=== PATIENT | male | born 1945 | race Caucasian/White ===

== ENCOUNTER → 2018-06-02 09:34 | Outpatient (CLI) | payer OTHER, SELFPAY ==
[2018-06-02 10:28] LABS: Alanine Aminotransferase 30 IU/L (21-72); Aspartate Aminotransferase 24 IU/L (17-59); Blood Urea Nitrogen 21 mg/dL (9-20); Calcium 9.5 mg/dL (8.4-10.2); Carbon Dioxide 28 mmol/L (22-32); Chloride 104 mmol/L (98-107); Cholesterol 145 mg/dL (140-199); Estimated Glomerular Filt Rate > 60.0 mL/min (>60); Glucose 92 mg/dL (80-110); HDL Cholesterol 45 mg/dL (40-60); HEMOLYSIS < 15 (0-50); LDL Cholesterol Calculated 82 mg/dL (<100); Potassium 3.8 mmol/L (3.4-5.1); Sodium 142 mmol/L (137-145); Triglycerides 91 mg/dL (35-150)
== END ==
PROVIDERS: Family Provider Internal Medicine; PCP Internal Medicine; Visit Provider Internal Medicine
DX: E78.5 Hyperlipidemia, unspecified (principal)
CPT/HCPCS: 36415; 80048; 80061; 84450; 84460

== ENCOUNTER 2018-12-08 06:52 | Day surgery (SDC) | payer OTHER, SELFPAY ==
[2018-12-08] VITALS (9 sets, daily range): BP systolic 88–119; BP diastolic 59–70; PULSE 48–74; RESP 10–15; TEMP 36.1–36.7; O2SAT 95–98; BMI 24.4
[2018-12-08] MEDS: SODIUM CHLORIDE 0.9% 1,000 ML 200 ML IV (07:20)
--- NOTE | 2018-12-08 07:53 | PM.HP.1 ---
History of Present Illness Date Patient Seen: 12/08/18 Time Patient Seen: 07:53 Chief complaint: [id number] Colonoscopy Narrative: 72-year-old male who presents for colorectal screening. His last colonoscopy was 12 years ago. He reports that it was normal at that time. On further history today he denies any gastrointestinal symptoms. No nausea, vomiting, abdominal pain, loss of appetite, unexplained weight loss, change in bowel habits, diarrhea, constipation, melena, hematochezia, or bright red blood per rectum. Patient History Medical History Benign prostatic hyperplasia (Acute) Depression (Acute) Hyperlipidemia (Acute) Hypertension (Acute) Melanoma (Acute) Osteoarthritis (Acute) Surgical History History of colonoscopy (Acute) Social History household members: spouse Family & Social History Social History: household members spouse Meds Home Medications Medication Instructions Recorded Confirmed Type amlodipine 10 mg PO DAILY 12/08/18 12/08/18 History aspirin 12/08/18 History atorvastatin 20 mg PO DAILY 12/08/18 12/08/18 History hydrochlorothiazide 25 mg PO DAILY 12/08/18 12/08/18 History losartan 50 mg PO DAILY 12/08/18 12/08/18 History methylphenidate HCl 5 mg PO BID 12/08/18 12/08/18 History tamsulosin 0.4 mg PO DAILY 12/08/18 12/08/18 History Allergies Allergy/AdvReac Type Severity Reaction Status Date / Time No Known Drug Allergies Allergy Verified 12/08/18 07:06 Review of Systems Review of Systems All systems reviewed & are unremarkable except as noted in HPI and below Exam Vital Signs (past 8 hours): - 12/08/18 07:11 Temperature 97.6 F Pulse Rate 53 L Respiratory Rate 15 Blood Pressure 112/66 Pulse Oximetry 97 Oxygen Delivery Method Room Air Narrative Exam Narrative: Well-nourished well-developed male in no acute distress. Alert oriented x3 Sclera nonicteric Regular rate rhythm No wheezes Abdomen soft, nondistended, nontender Extremities show no clubbing or cyanosis Objective Labs Labs: No recent laboratory or radiographic studies for review Assessment & Plan Assessment & Plan narrative: 72-year-old male who requires colorectal screening by age criteria. His last examination was 12 years ago as well. Colonoscopy is currently recommended. Risks, benefits, alternatives in addition to the technical details of colonoscopy were explained. Risks including but not limited to sedation, aspiration, bleeding, pain, missed lesion, incomplete examination, need for further radiographic studies, colonic perforation, need for major abdominal surgery, and all attendant risks of major surgery were explained in detail. All questions were answered to his satisfaction, and he voiced understanding. Consent was placed on the chart. We will proceed as above.
--- NOTE | 2018-12-08 07:56 | PM.PREOP ---
Pre-operative Note Interval Note History & Physical reviewed/Exam performed by Physician: Yes Changes to H&P: No H&P completed within 30 days and has changed as indicated here:: Patient seen and examined. History physical examination placed on the chart today. Obviously, there have been no changes in the last 15 min. Proceed with colonoscopy today as planned. ASA Class (for procedural sedation): II
[2018-12-08] MEDS: MIDAZOLAM 5 MG/5 ML VIAL IV (08:07)
[2018-12-08] MEDS: fentaNYL 250 MCG/5 ML INJ IV (08:08)
--- NOTE | 2018-12-08 08:17 | PM.OP.ENDO ---
Operative Date/Time/Diagnoses Date of procedure: 12/08/18 Time of procedure: 08:18 Pre-op diagnosis: Colorectal screening Post-op diagnosis: other (Poor suboptimal bowel preparation necessitating aborted colonoscopy) Procedure & Clinicians Study performed: 1. Sedation per surgeon 2. Aborted incomplete colonoscopy due to suboptimal poor bowel preparation Same procedure as scheduled: No Indications: 72-year-old male whose last colonoscopy was 12 years ago. He presents now for colorectal screening. Colonoscopy is once again recommended. Surgeon: Santana Brandon Procedure Notes SCOAP/Timeout: Yes Procedure in detail: After obtaining informed consent the patient was brought the endoscopy suite and attached all appropriate cardiopulmonary monitors. Nasal cannula oxygen was applied. He was placed in left lateral decubitus position. SCOAP time out was performed per standard protocol. Intravenous sedation was achieved per the surgeon using fentanyl and Versed in incremental doses. However, the patient was somewhat difficult to sedate and would awake suddenly throughout the procedure attempting to move. Digital rectal examination revealed no masses or other abnormalities. Prostate was without nodules. Colonoscope was inserted into the rectum and the bowel was insufflated with carbon dioxide. The bowel preparation was quite poor in suboptimal with retained fibrous food material, solid stool, and very thick opaque liquid stool. Despite copious irrigation we could not clear the rectum or the colon for adequate visualization at any portion. I could visualize the colonic lumen, however, partially to the level of the hepatic flexure and navigated to that level. Further attempts at navigating the hepatic flexure to the right colon and cecum were nonetheless difficult because of inadequate visualization due to poor preparation complicated by some redundancy of his colon as well as his difficulty for adequate sedation. In the context of the extremely poor preparation I felt that it was not beneficial or productive to continue. Therefore the procedure was abandoned at this point. Scope was withdrawn and the patient taken recovery in stable condition. He will require rescheduled procedure with a 2 day more adequate bowel preparation and general anesthesia for adequate sedation. Scope withdrawal time: Not applicable Sedation minutes: 17 Findings: other findings (Mildly tortuous redundant colon in the setting of a suboptimal poor bowel preparation) Specimen(s): none sent Complications: none Impression: Incomplete examination today necessitating rescheduled procedure with 2 day bowel preparation Recommendations: Other recommendation (Reschedule colonoscopy with better preparation as above and general anesthesia) Plan for aftercare: 1. Discharge home Follow up: as needed (Will reschedule procedure as above) Disposition: PACU
== END 2018-12-08 09:34 | disposition home or self-care (01) ==
LOC: ENDO 06:52
PROVIDERS: Family Provider Internal Medicine; PCP Internal Medicine; Visit Provider Surgery
PROC: 0DJD8ZZ Inspection of Lower Intestinal Tract, Via Natural or Artificial Opening Endoscopic (ICD-10-PCS; CPT 45378; principal; 2018-12-08 07:45)
DX: Z12.11 Encounter for screening for malignant neoplasm of colon (principal); N40.0 Benign prostatic hyperplasia without lower urinary tract symptoms; F32.9 Major depressive disorder, single episode, unspecified; E78.00 Pure hypercholesterolemia, unspecified; I10 Essential (primary) hypertension
CPT/HCPCS: G0104; 99152; J2250; J3010

== ENCOUNTER → 2019-05-15 07:15 | Outpatient (CLI) | payer OTHER, SELFPAY ==
[2019-05-15 08:55] LABS: Alanine Aminotransferase 21 IU/L (21-72); Aspartate Aminotransferase 24 IU/L (17-59); BUN Creatinine Ratio 22.2 (6-22); Blood Urea Nitrogen 20 mg/dL (9-20); Carbon Dioxide 28 mmol/L (22-32); Chloride 104 mmol/L (98-107); Cholesterol 159 mg/dL (140-199); Estimated Glomerular Filt Rate > 60.0 mL/min (>60); Glucose 85 mg/dL (80-110); HDL Cholesterol 43 mg/dL (40-60); HEMOLYSIS < 15 (0-50); LDL Cholesterol Calculated 93 mg/dL (<100); Potassium 4.1 mmol/L (3.4-5.1); Sodium 142 mmol/L (137-145); Triglycerides 113 mg/dL (35-150)
== END ==
PROVIDERS: PCP Internal Medicine; Visit Provider Internal Medicine
DX: I10 Essential (primary) hypertension (principal); E78.5 Hyperlipidemia, unspecified; Z12.5 Encounter for screening for malignant neoplasm of prostate
CPT/HCPCS: 36415; 80048; 80061; 84450; 84460; G0103

== ENCOUNTER → 2020-04-20 08:52 | Outpatient (CLI) | payer MEDICARE, SELFPAY ==
[2020-04-20 10:13] LABS: Alanine Aminotransferase 17 IU/L (<50); Albumin 4.5 g/dL (3.5-5.0); Albumin Globulin Ratio 1.8 (1.0-2.8); Alkaline Phosphatase 78 U/L (38-126); Aspartate Aminotransferase 27 IU/L (17-59); BUN Creatinine Ratio 28.6 (6-22); Bilirubin Total 0.4 mg/dL (0.2-1.3); Blood Urea Nitrogen 22 mg/dL (9-20); Calcium 9.7 mg/dL (8.4-10.2); Carbon Dioxide 26 mmol/L (22-32); Chloride 105 mmol/L (98-107); Cholesterol 133 mg/dL (140-199); Estimated Glomerular Filt Rate > 60.0 mL/min (>60); Globulin 2.5 g/dL (1.7-4.1); Glucose 87 mg/dL (80-110); HDL Cholesterol 39 mg/dL (40-60); HEMOLYSIS < 15 (0-50); LDL Cholesterol Calculated 77 mg/dL (<100); Potassium 4.2 mmol/L (3.4-5.1); Sodium 138 mmol/L (137-145); Triglycerides 87 mg/dL (35-150)
[2020-04-21 08:07] LABS: PSA Free % 25.5 % (.); PSA, Total 1.1 ng/mL (0.0-4.0)
== END ==
PROVIDERS: PCP Internal Medicine; Referring Provider Internal Medicine; Visit Provider Internal Medicine
DX: I10 Essential (primary) hypertension (principal); E78.5 Hyperlipidemia, unspecified; Z12.5 Encounter for screening for malignant neoplasm of prostate
CPT/HCPCS: 36415; 80053; 80061; 84153; 84154

== ENCOUNTER → 2020-07-14 10:14 | Outpatient (CLI) | payer MEDICARE, SELFPAY ==
[2020-07-15 14:00] LABS: COVID19 Sendout Not Detected (Not Detect)
== END ==
PROVIDERS: PCP Internal Medicine; Visit Provider Family Medicine
DX: Z11.59 Encounter for screening for other viral diseases (principal)
CPT/HCPCS: 87635

== ENCOUNTER → 2020-07-17 13:39 | Outpatient (CLI) | payer MEDICARE, SELFPAY ==
--- NOTE | 2020-07-17 | DI.ECHO.S_ITS ---
[facility] +---------+ [facility] +---------+ : : [address] : : : : [id number] : : : : Phone: [phone] Echocardiogram Report + + :Name: KYLE GAONA Study Date: 07/17/2020 Height: 72 in : :[facility] Weight: 182 lb : : Gender: Male BSA: 2.0 m2 : :: 1945 Age: 74 yrs BP: 142/76 mmHg: :Reason For Study: BRADYCARDIA : :Ordering Physician: SYBIL, : :CRISTO Avalos Performed By: Justine Beaulieu : :Referring: CRISTO DEVINE : + + Interpretation Summary The ejection fraction is estimated to be 60-65%. There is trace aortic regurgitation. There is trace tricuspid regurgitation. There is trace mitral regurgitation. Procedure: A two-dimensional transthoracic echocardiogram with color flow and Doppler was performed. The study quality was technically adequate. There is no prior echocardiogram noted for this patient. The heart rate ranged between 50-55 bpm during the study. Left Ventricle: The left ventricle is normal in size and wall thickness. The ejection fraction is estimated to be 60-65%. Left ventricular wall motion is normal. Diastolic parameters suggest probable normal left ventricular diastolic function and normal filling pressures. Right Ventricle: The right ventricle is normal in size and function. Atria: The left atrial size is normal. Right atrial size is normal. There is no Doppler evidence for an interatrial shunt. Mitral Valve: The mitral valve is normal in structure and function. There is trace mitral regurgitation. Aortic Valve: The aortic valve is trileaflet. The aortic valve opens well. There is no aortic valve stenosis. There is trace aortic regurgitation. Tricuspid Valve: The tricuspid valve is normal in structure and function. There is trace tricuspid regurgitation. Pulmonic Valve: The pulmonic valve leaflets are thin and pliable; valve motion is normal. There is trace pulmonic regurgitation. Great Vessels: The aortic root is normal size. The ascending aorta is mildly enlarged. The IVC is of normal diameter and collapses greater than 50% with a sniff. This suggests a low right atrial pressure of 3 mm Hg. Pericardium/ Pleura There is no pericardial effusion. There is no pleural effusion. MMode/2D Measurements & Calculations LVIDd: 4.8 cm LVOT diam: 2.1 cm LVIDs: 3.4 cm Ao root diam: 3.7 cm FS: 30.1 % asc Aorta Diam: 4.1 cm EPSS: 1.4 cm IVSd: 0.83 cm LVPWd: 0.78 cm LV eugene. diameter/BSA (cm/m^2): 2.4 LV sys. diameter/BSA (cm/m^2): 1.6 LA A2 area: 17.3 cm2 RA long axis: 5.6 cm LA A4 area: 17.7 cm2 RA area: 17.8 cm2 LA length (vol): 5.2 cm RA vol: 47.8 ml LA vol: 50.2 ml RA : 23.4 ml/m2 LA vol index: 24.5 ml/m2 IVC diam: 1.6 cm RVD1 (basal): 3.0 cm TAPSE: 2.5 cm Doppler Measurements & Calculations Ao V2 max: 144.3 cm/sec LVOT Max Miguel: 98.5 cm/sec Ao V2 mean: 94.0 cm/sec LV V1 max P.9 mmHg Ao max P.3 mmHg LV V1 VTI: 24.9 cm Ao mean P.2 mmHg JACEY(I,D): 2.4 cm2 Ao V2 VTI: 35.4 cm JACEY(V,D): 2.3 cm2 sev ratio: 0.70 JACEY indexed to BSA (cm^2/m^2): 1.2 MV E max miguel: 67.4 cm/sec TR max miguel: 216.9 cm/sec MV A max miguel: 64.3 cm/sec TR max P.8 mmHg MV E/A: 1.0 PA V2 max: 66.3 cm/sec Med Peak E' Miguel: 6.5 cm/sec PA V2 mean: 42.2 cm/sec E/E' med: 10.4 PA mean P.84 mmHg Lat Peak E' Miguel: 11.6 cm/sec E/E' lat: 5.8 E/e' average: 8.1 MV dec time: 0.25 sec SV(LVOT): 83.7 ml Reading Physician:03:48 PM
--- NOTE | 2020-07-17 18:14 | DI.NM.S_ITS ---
DATE OF SERVICE: 07/17/2020 PROCEDURE: Exercise treadmill stress test without imaging. REFERRING PROVIDER: Dr. Jose Goodwin INDICATIONS: The patient is a 74-year-old male with asymptomatic resting bradycardia. FINDINGS: 1. The patient was able to exercise for 8 minutes 3 seconds on the standard [facility] protocol, suggesting excellent exercise capacity with an KENJI of -29%, achieving 10.1 METS. 2. He had a normal heart rate and blood pressure response to exercise with a resting heart rate of 52 BPM, increasing to a maximum of 130 BPM (90% of his predicted maximum). 3. He had no chest discomfort other anginal symptoms. 4. His resting ECG shows sinus bradycardia with normal ST segments. There are no significant ST-segment shifts with exercise. He has rare isolated PVCs, rarely in couplets with exercise with more frequent isolated PVCs in recovery, occasionally in a trigeminal pattern. IMPRESSION: 1. Normal exercise treadmill study for ischemia. 2. Excellent exercise capacity with a normal heart rate response to exercise. He had no angina. He had occasional premature ventricular contractions, briefly in a trigeminal pattern in recovery, but no other complex ventricular ectopy. Taurus Crow - ANU/yoanna/lc doc#: [id number]/job#: [id number] dd: 07/17/2020 17:19:00 dt: 07/17/2020 17:57:00 DICTATING MD/COPIES TO: Elton Bautista MD; Jose Goodwin MD COPIES MNE: VIOLETA;
--- OUTSIDE RECORDS SUMMARY | 2020-12-09 16:59 | XMS_ITS | Referral Summary ---
:1945 Author Organization [facility] [address] [place] [address] Care Team Providers Name Role Phone Destiny Valiente Primary Care Provider Reason for Referral Consultation (Routine) Status Reason Specialty Diagnoses / Referred By Referred To Procedures Contact Contact Closed Specialty Services Diagnoses [facility] Required [place] [address] [place] [address] [phone] [place], [place] Phone: [phone] Reason for Visit Reason Comments Bradycardia Encounter Details Date Type Department Care Team Description 08/22/2020 Office Visit [facility] Jose Goodwin Bradycard ia (Primary Clinics Cardiology MD Dx) [address] [place], [place] [id number] Allergies No Known Allergiesdocumented as of this encounter (statuses as of 08/27/2020) Medications Medication Sig Dispensed Refills Start End Status Date Date ergocalciferol, vitamin Take by 0 Active D2, 2,000 unit tablet mouth. hydroCHLOROthiazide 0 Active (HYDRODIURIL) 25 mg 7 tablet methylphenidate HCl Take 5 mg 0 Active (RITALIN) 5 mg tablet by mouth. simvastatin (ZOCOR) 40 0 Active mg tablet 7 tamsulosin (FLOMAX) 0.4 Take 1 180 capsule 3 08/11 2/2 Active mg capsuleIndications: capsule 0 021 Lower urinary tract (0.4 mg symptoms total) by mouth 2 (two) times a day amLODIPine (NORVASC) 5 Take 0.5 45 tablet 3 Discontinued mg tablet tablets 0 020 (Therapy (2.5 mg completed) total) by mouth daily losartan (COZAAR) 50 mg Take 1 0 Discontinued tablet tablet by 0 020 (Contact M ove - mouth daily Error) documented as of this encounter (statuses as of 08/27/2020) Active Problems No known active problemsdocumented as of this encounter (statuses as of 08/27/2020) Immunizations Name Administration Dates Next Due FLU PF 6-35 Mo (Fluzone 0.25 mL Syringe) 11/03/2005 Hep A, 2 Dose 11/13/1998 Hep A, Unspecified 11/13/1998 Hep A-Hep B, Adult (Twinrix) 12/13/2007 Hep B, Unspecified 12/12/1998, 11/13/1998 Influenza, Quadrivalent 11/03/2005, 11/07/2004 Influenza, Seasonal, Injectable 11/03/2005, 11/07/2004 Live Zoster (Zostavax) 03/13/2009 Pneumococcal Polysaccharide PPV23 (Mthqvuadz30) 05/23/2012 TD Preservative Free (Generic) 10/09/2005, 11/13/1998 TD Preservative Free (Tenivac) 10/09/2005, 11/13/1998 Tdap (Boostrix,Adacel) 12/13/2007 Typhoid Live 12/12/1998 C Hep B, Adolescent or Pediatric 12/12/1998, 11/13/1998 documented as of this encounter Social History Tobacco Use Types Packs/Day Years Used Date Former Smoker 0.25 2 Smokeless Tobacco: Never Used Alcohol Use Drinks/Week oz/Week Comments No Sex Assigned at Date Recorded Not on file documented as of this encounter Last Filed Vital Signs Vital Sign Reading Time Taken Comments Blood Pressure 106/64 08/22/2020 2:30 PM PST Pulse 60 08/22/2020 2:30 PM PST Temperature - - Respiratory Rate - - Oxygen Saturation - - Inhaled Oxygen Concentration - - Weight 84.4 kg (186 lb) 08/22/2020 2:30 PM PST Height 182.6 cm (5' 11.89) 08/22/2020 2:30 PM PST Body Mass Index 25.3 08/22/2020 2:30 PM PST documented in this encounter Progress Notes Adalberto Ricketts PA - 08/22/2020 2:30 PM PST Subjective Patient ID: Taurus Crow is a 74 y.o. male that had concerns including Bradycardia. HPI: 74 yo m w/ preserved LV function and pmh of BPH, ADHD, ED, HTN, HLD ?? Initially referred to EP for bradycardia. ?? Patient notices his pulse is often in the 50s and 40s even with activity. He often feels fatigued especially w/ exertion and occasionally light headed. ?? TTE, 14 day monitor and and ETT obtained for additional work up. ETT suggests very good exercise capacity, excellent chronotropic response and no evidence of ischemia., TTE suggests a structurally normal heart. 14 day monitor shows no significant rhythm disturbance. He reports feeling well since time of last visit Denies chest pain, shortness of breath, dyspnea on exertion, postural nocturnal dyspnea symptoms, palpitations, light headedness, dizziness, syncope or near syncope. Past Medical History: Diagnosis Date ??? Cancer (CMS/HCC) History reviewed. No pertinent surgical history. History reviewed. No pertinent family history. Social History Socioeconomic History ??? Marital status: Unknown Spouse name: Not on file ??? Number of children: Not on file ??? Years of education: Not on file ??? Highest education level: Not on file Occupational History ??? Not on file Social Needs ??? Financial resource strain: Not on file ??? Food insecurity Worry: Not on file Inability: Not on file ??? Transportation needs Medical: Not on file Non-medical: Not on file Tobacco Use ??? Smoking status: Former Smoker Packs/day: 0.25 Years: 2.00 Pack years: 0.50 ??? Smokeless tobacco: Never Used Substance and Sexual Activity ??? Alcohol use: No ??? Drug use: Yes Types: Marijuana ??? Sexual activity: Not on file Lifestyle ??? Physical activity Days per week: Not on file Minutes per session: Not on file ??? Stress: Not on file Relationships ??? Social connections Talks on phone: Not on file Gets together: Not on file Attends nondenominational service: Not on file Active member of club or organization: Not on file Attends meetings of clubs or organizations: Not on file Relationship status: Not on file Other Topics Concern ??? Not on file Social History Narrative ??? Not on file No Known Allergies Current Medication List Sig tamsulosin (FLOMAX) 0.4 mg capsule Take 1 capsule (0.4 mg total) by mouth 2 (two) times a day tamsulosin (FLOMAX) 0.4 mg capsule (Discontinued) Take 0.4 mg by mouth 2 (two) times a day ergocalciferol, vitamin D2, 2,000 unit tablet Take by mouth. hydroCHLOROthiazide (HYDRODIURIL) 25 mg tablet losartan (COZAAR) 50 mg tablet Take 1 tablet by mouth daily methylphenidate HCl (RITALIN) 5 mg tablet Take 5 mg by mouth. simvastatin (ZOCOR) 40 mg tablet amLODIPine (NORVASC) 5 mg tablet (Discontinued) Take 0.5 tablets (2.5 mg total) by mouth daily Review of Systems Constitutional: Negative for fatigue and unexpected weight change. Eyes: Negative for visual disturbance. Respiratory: Negative for shortness of breath. Cardiovascular: Negative for chest pain, palpitations and leg swelling. Gastrointestinal: Negative for blood in stool. Endocrine: Negative for polydipsia. Skin: Negative for rash. Neurological: Negative for dizziness, syncope and weakness. Hematological: Does not bruise/bleed easily. Psychiatric/Behavioral: The patient is not nervous/anxious. All other systems reviewed and are negative. Objective BP 106/64 (BP Location: Left arm, Patient Position: Sitting) Pulse 60 Ht 1.826 m Wt 84.4 kg BMI 25.30 kg/m?? Physical Exam: General Appearance: Well-nourished, pleasant, cooperative, no apparent distress HEET: Normocephalic atraumatic, EOMI, no scleral icterus, no arcus, tongue midline, mucous membranesmoist, good dentition Neck: No obvious mass, supple Respiratory: Good aeration, clear to auscultation and percussion, no rales or wheeze Cardiovascular: Nondisplaced PMI, RRR, normal S1 and normal S2, no murmurs/rubs/gallops, JVP 4-5 cm,no JVD Pulses: Carotid and femoral pulses 2+ bilaterally without bruit, dorsalis pedis and anterior tibial pulses 2+ bilaterally Abdomen: Soft, nondistended, nontender, no heptosplenomegally, no hepatojugular reflux, normal bowelsounds without bruits Extremities: No clubbing, cyanosis or edema Neuro: Alert, no facial droop, tongue midline, no gross motor deficits Psych: Appropriate affect, normal mentation and memory Skin: Warm and dry, no rashes on face, neck, and lower extremities Assessment/Plan 74 yo m w/ preserved LV function and pmh of BPH, ADHD, ED, HTN, HLD Sinus bradycardia Reassuring work up as above. Some evidence suggestive of MAO. Will refer to sleep medicine. Will otherwise continue watchful waiting and see him back in 12 months. Electronically signed by Jose Goodwin MD 08/22/2020 2:31 PM Associated attestation - Jose Goodwin MD - 08/22/2020 3:23 PM PSTI saw and evaluated the patient, participating in the higuera portions of the service. I reviewed Danica's note. I agree with his findings and plan.documented in this encounter Plan of Treatment Scheduled Referrals Name Type Priority Associated Diagnoses Order S chedule *SRC MV Referral Outpatient Referral Routine Bradycardia Orde red: to Sleep Medicine 08/22/2020 documented as of this encounter Visit Diagnoses Diagnosis Bradycardia - Primary Other specified cardiac dysrhythmias documented in this encounter Insurance Payer Benefit Plan / Subscriber ID Effective Dates Phone Addre ss Type Group [employer] [id number] 2019-Present ADVANTAGE (Home) [place] [address] documented as of this encounter Advance Directives Documents on File Type Date Recorded Patient Trauma Program Manager Explanati on Advance Directives and Living Will
== END ==
PROVIDERS: PCP Internal Medicine; Referring Provider Internal Medicine; Visit Provider Physician Assistant
DX: R00.1 Bradycardia, unspecified (principal); I77.89 Other specified disorders of arteries and arterioles
CPT/HCPCS: 93017; 93306

== ENCOUNTER → 2021-09-29 13:01 | Outpatient (CLI) | payer OTHER, SELFPAY ==
[2021-09-29 14:15] LABS: Add Manual Diff / Slide Review NO; Basophils Absolute Auto 0 /uL (0-100); Basophils Percent Auto 0.5 % (0-2); Eosinophils Absolute Auto 100 /uL (0-450); Eosinophils Percent Auto 1.4 % (2-4); Hematocrit 39.4 % (41-53); Hemoglobin 13.6 g/dL (13.5-17.5); Lymphocytes Absolute Auto 900 /uL (1100-4500); Lymphocytes Percent Auto 16.6 % (25-40); Mean Corpuscular HGB Conc 34.5 % (30-36); Mean Corpuscular Hemoglobin 31.4 PG (26-34); Monocytes Absolute Auto 400 /uL (0-900); Monocytes Percent Auto 7.2 % (3-14); Neutrophils Absolute Auto 4100 /uL (1500-7000); Neutrophils Percent Auto 74.3 % (50-75); Platelet Count 168 X10^3/uL (150-400); Red Blood Cell Count 4.33 X10^6/uL (4.5-5.9); Red Cell Distribution Width 13.7 % (11.6-14.8); White Blood Cell Count 5.6 X10^3/uL (4.5-11.0)
[2021-09-29 14:46] LABS: Erythrocyte Sedimentation Rate 6 MM/HR (0-15)
[2021-09-29 15:20] LABS: Alanine Aminotransferase 18 IU/L (<50); Albumin 4.4 g/dL (3.5-5.0); Albumin Globulin Ratio 1.7 (1.0-2.8); Alkaline Phosphatase 75 U/L (38-126); Aspartate Aminotransferase 21 IU/L (17-59); BUN Creatinine Ratio 20.5 (6-22); Bilirubin Total 0.4 mg/dL (0.2-1.3); Blood Urea Nitrogen 16 mg/dL (9-20); Calcium 9.4 mg/dL (8.4-10.2); Carbon Dioxide 26 mmol/L (22-32); Chloride 103 mmol/L (98-107); Estimated Glomerular Filt Rate > 60.0 mL/min (>60); Globulin 2.6 g/dL (1.7-4.1); Glucose 94 mg/dL (80-110); HEMOLYSIS < 15 (0-50); Potassium 4.7 mmol/L (3.4-5.1); Sodium 137 mmol/L (137-145)
[2021-09-29 15:23] LABS: High Sensitivity CRP - Cardiac 0.6 mg/L (1.0-3.0)
[2021-09-30 09:39] LABS: RPR Screen Non Reactive (Non Reactive)
[2021-09-30 17:19] LABS: Treponema pallidum Antibodies Non Reactive (Non Reactive)
[2021-10-01 08:08] LABS: QuantiFERON Mitogen Value >10.00 IU/mL (.); QuantiFERON Nil Value 0.09 IU/mL (.); QuantiFERON TB Gold Plus Negative (Negative); QuantiFERON TB1 Ag Value 0.07 IU/mL (.); QuantiFERON TB2 Ag Value 0.13 IU/mL (.)
[2021-10-02 06:10] LABS: Angiotensin Converting Enzyme 18 U/L (14-82)
[2021-10-06 14:40] LABS: Lysozyme (Muramidase) 4.7 ug/mL (3.0-12.8)
[2021-10-09 18:29] LABS: HLA B27 Negative (.)
== END ==
PROVIDERS: PCP Internal Medicine; Referring Provider Ophthalmology; Visit Provider Ophthalmology
DX: H53.123 Transient visual loss, bilateral (principal)
CPT/HCPCS: 36415; 80053; 81374; 82164; 85025; 85549; 85651; 86140; 86480; 86592; 86780

== ENCOUNTER → 2024-01-06 10:55 | Outpatient (CLI) | payer MEDICARE, SELFPAY ==
[2024-01-07 12:59] LABS: Fecal Immunochemical Test Negative (Negative)
== END ==
PROVIDERS: PCP Internal Medicine; Referring Provider Internal Medicine; Visit Provider Internal Medicine
DX: Z12.11 Encounter for screening for malignant neoplasm of colon (principal)
CPT/HCPCS: 82274

== ENCOUNTER → 2024-11-27 16:51 | Outpatient (CLI) | payer MEDICARE, SELFPAY ==
--- NOTE | 2024-11-27 16:53 | DI.RAD.S_ITS ---
PROCEDURE: XR KNEE RT 3V INDICATIONS: Right knee pain TECHNIQUE: 3 views of the knee were acquired. COMPARISON: None. FINDINGS: Bones: There are no osseous abnormalities. Joints: The tibialfemoral and patellofemoral joints show moderate degenerative change with slight lateral patellar subluxation. Chondrocalcinosis present the mediolateral menisci. Soft tissues: Normal IMPRESSION: Moderate degeneration with chondrocalcinosis in the mediolateral menisci Dictated by: Lalo Alcaraz M.D. on 11/28/2024 at 10:50 Approved by: Lalo Alcaraz M.D. on 11/28/2024 at 10:51
== END ==
PROVIDERS: PCP Internal Medicine; Referring Provider Nurse Practitioner Family; Visit Provider Nurse Practitioner Family
DX: M17.11 Unilateral primary osteoarthritis, right knee (principal); M11.261 Other chondrocalcinosis, right knee; M25.561 Pain in right knee
CPT/HCPCS: 73562